=== PATIENT | male | born 1950 | race Caucasian/White ===

== ENCOUNTER 2024-05-29 00:58 | Day surgery (SDC) | payer MEDICARE, SELFPAY ==
[2024-05-17 14:10] VITALS: BMI 27.1
--- NOTE | 2024-05-17 14:27 | PC.NURSE ---
Addendum entered by Bev Bolton RN 05/18/24 11:22: Plavix and aspirin being held per Dr. Carrera, not Dr. Garcia. Original Note: Report to the Outpatient Waiting Room, entrance under the green pavilion located off [facility], at time _07:00am on date 05/29/24 . Planned Procedure Time: _09:00am .? Time changes happen often and if your time is changed the preop area will call you the afternoon before. - You and your visitor will be asked to self-screen and do not enter if you have any COVID symptoms. Please call surgeon if you need to reschedule. - A mask is optional within the hospital at this time. Patients may have clear liquids (water, carbonated beverages, clear teas, apple juice) until 3 hours prior to surgery with a maximum of 20 ounces. - No food from midnight until time of surgery and no smoking. This includes no chewing gum, candy or mints.( 0600am) Take only the following medications with a SIP of water on the morning of surgery: ___Metoprolol and Ranexa DO NOT STOP ANY OF YOUR OTHER PRESCRIPTION MEDICATIONS PRIOR TO SURGERY EXCEPT THE FOLLOWING Medications to discontinue per physician Holding the Plavix and Aspirin per Dr Rudd/ orders- pt to stop accordingly and check today Date to take last dose 1 week or prior per Dr Rudd and Dr Garcia orders Hold all MVI Please no make-up, nail english, hairspray, perfume, deodorant, or body powder the day of surgery.? No jewelry (including any body piercings) or valuables the day of surgery, leave them at home.? Please take a shower or bath the night before, or the morning of, surgery with an antibacterial soap.? Wear comfortable, loose fitting clothing.? - Jewelry must be removed prior to entering the operating room.? Rings and piercings that are not removed may be cut off. - The hospital will not accept responsibility for valuables.? - Please leave all valuables, including medications, at home the day of surgery. If you are going home after surgery, a licensed driver engineer must drive you home.? - NO public transportation without another adult if you receive anesthesia. - We recommend that an adult stay with you for 24 hours following discharge. - We also recommend that you do not drive, make important decision, drink alcoholic beverages, or take any drugs that were not prescribed by your health care provider for at least 24 hours after your discharge time. Follow any additional instructions given to you from your surgeon. Telephone instructions given to ___Patient and asked if any additional questions and then verbalized understanding. Patient advised to call surgeon office or pre surgery nurse liaison [phone] if any additional questions.
[2024-05-29 08:04] VITALS: BP 128/78; PULSE 59; RESP 20; TEMP 36.1; O2SAT 99
--- NOTE | 2024-05-29 08:39 | PM.IMHP ---
H&P: HPI History of Present Illness Date/Time: 05/29/24 08:39 Chief Complaint: elevated psa Narrative: 73 yr old male with elevated psa. Here for uronav us and prostate biopsy Review of Systems Review of Systems: All systems reviewed & are unremarkable except as noted in HPI and below PMFSH Family History Family History Father Hypertension Heart disease Mother Hypertension Social History Social History Smoking status: Never smoker Alcohol intake: current Drinks per week: 1 Substance use: never Substance use type: does not use Do You Feel Safe in your Home?: Yes Lack of Transportation: No Lack of Food: Never True Current Housing: I Have Housing Concerned About Future Housing: No Difficulty Paying Gas/Electric Bills: No Difficulty Paying for Meds: No Currently Unemployed: No Education: High School Diploma/GED Difficulty w/ Childcare or Family Care: No Living arrangements: with family Spiritual care concerns: No Meds Home Medications and Allergies Home Medications ?Medication ?Instructions ?Recorded ?Confirmed ?Type aspirin 81 mg tablet,delayed 81 mg PO DAILY 02/10/21 05/17/24 History release (Adult Low Dose Aspirin) clopidogrel 75 mg tablet 75 mg PO DAILY 02/10/21 05/17/24 History finasteride 5 mg tablet 5 mg PO DAILY 02/10/21 05/17/24 History pantoprazole 40 mg tablet,delayed 40 mg PO QAM 02/10/21 05/17/24 History release pravastatin 40 mg tablet 40 mg PO DAILY 02/10/21 05/17/24 History tamsulosin 0.4 mg capsule 0.4 mg PO BID 02/10/21 05/17/24 History baclofen 5 mg tablet 5 mg PO Q12H PRN cramps 07/28/23 05/17/24 History metoprolol succinate 50 mg 50 mg PO DAILY 07/28/23 05/17/24 History tablet,extended release 24 hr ranolazine 500 mg 500 mg PO BID 07/28/23 05/17/24 History granules,extended release in packet mecobalamin (vitamin B12) 500 mcg 500 mcg PO DAILY 05/17/24 05/17/24 History chewable tablet vitamin E 268 mg (400 unit) capsule 268 mg PO DAILY 05/17/24 05/17/24 History Allergies Allergy/AdvReac Type Severity Reaction Status Date / Time amoxicillin Allergy Severe Rash Verified 05/17/24 13:57 atorvastatin Allergy Intermediate Rash Verified 05/17/24 13:57 Exam Const: General: cooperative, comfortable and no acute distress Resp: Effort & Inspection: normal respiratory effort Cardio: Rate: regular rate Rhythm: regular rhythm Assessment and Plan Assessment and plan (1) Elevated PSA: Code(s): R97.20 - Elevated prostate specific antigen [PSA] Status: Acute Assessment and Plan: Proceed with uronav us and prostate biopsy
--- NOTE | 2024-05-29 08:42 | WPDHPUPDATE1 ---
History and Physical Update Update Date/Time: 05/29/24 08:42 History and Physical has been reviewed, including an updated exam of the patient. There are NO changes in the patient's condition. Risks, benefits, and alternatives have been discussed and questions answered. Patient agrees to proceed with procedure.
--- NOTE | 2024-05-29 08:59 | P.PNAN_ITS ---
Anes - Initial Pre Proc Eval Procedure: Operation Date: 05/29/24 10:00 Proposed Procedures p Transrectal Ultrasound Fusion Guided Prostate Biopsy - Feliz Carrera MD Date/Time: 05/29/24 08:59 Surgeon: Feliz Carrera MD Pre Op Diagnosis: elevated psa Patient Data Age: 73 Gender: M Height: 1.75 m Weight: 83.4 kg Allergies Allergy/AdvReac Type Severity Reaction Status Date / Time amoxicillin Allergy Severe Rash Verified 05/17/24 13:57 atorvastatin Allergy Intermediate Rash Verified 05/17/24 13:57 Home Medications ?Medication ?Instructions ?Recorded ?Confirmed ?Type aspirin 81 mg tablet,delayed 81 mg PO DAILY 02/10/21 05/17/24 History release (Adult Low Dose Aspirin) clopidogrel 75 mg tablet 75 mg PO DAILY 02/10/21 05/17/24 History finasteride 5 mg tablet 5 mg PO DAILY 02/10/21 05/17/24 History pantoprazole 40 mg tablet,delayed 40 mg PO QAM 02/10/21 05/17/24 History release pravastatin 40 mg tablet 40 mg PO DAILY 02/10/21 05/17/24 History tamsulosin 0.4 mg capsule 0.4 mg PO BID 02/10/21 05/17/24 History baclofen 5 mg tablet 5 mg PO Q12H PRN cramps 07/28/23 05/17/24 History metoprolol succinate 50 mg 50 mg PO DAILY 07/28/23 05/17/24 History tablet,extended release 24 hr ranolazine 500 mg 500 mg PO BID 07/28/23 05/17/24 History granules,extended release in packet mecobalamin (vitamin B12) 500 mcg 500 mcg PO DAILY 05/17/24 05/17/24 History chewable tablet vitamin E 268 mg (400 unit) capsule 268 mg PO DAILY 05/17/24 05/17/24 History Patient hx anesthesia problems: none Family hx anesthesia problems: none Results Review: All pre-operative results and documents have been reviewed as part of the pre- operative evaluation. [facility]LY [facility] Past Medical History Medical History (Updated 05/29/24 @ 09:00 by Hernan Bejarano MD) HTN (hypertension) Heart attack Coronary artery disease Surgical History Surgical History (Updated 05/29/24 @ 09:00 by Hernan Bejarano MD) History of coronary artery stent placement Hx of CABG Family History Family History Father Hypertension Heart disease Mother Hypertension Social History Social History Smoking status: Never smoker Alcohol intake: current Drinks per week: 1 Substance use: never Substance use type: does not use Do You Feel Safe in your Home?: Yes Lack of Transportation: No Lack of Food: Never True Current Housing: I Have Housing Concerned About Future Housing: No Difficulty Paying Gas/Electric Bills: No Difficulty Paying for Meds: No Currently Unemployed: No Education: High School Diploma/GED Difficulty w/ Childcare or Family Care: No Living arrangements: with family Spiritual care concerns: No Anes - Eval Final PreProcedure Day of Procedure 05/29/24 08:59 Patient weight: overweight Heart: regular rate and rhythm Lungs: clear to auscultation Airway: Mallampati scale class II Neurological: alert and oriented Last oral intake: >/= 8 hours ASA classification: III Emergent: no Anesthetic plan: proceed Anesthesia type and monitoring: general GIVS and standard monitoring Results Review: All pre-operative results and documents have been reviewed as part of the pre- operative evaluation. Informed Consent: The patient's anesthetic plan and its attendant risks and benefits were discussed with the patient/family/POA. Questions were solicited and answers provided to the satisfaction of the patient/family/POA.
[2024-05-29] MEDS: LACTATED RINGERS 1,000 ML 30 ML IV CONT (09:20)
[2024-05-29] MEDS: ceFAZolin 2 GM/D5W 50 ML 2 GM/50 ML BAG IVPB (09:56)
[2024-05-29 10:18] VITALS: BP 98/49; PULSE 55; RESP 16; O2SAT 100
--- NOTE | 2024-05-29 10:18 | W.PM.PROC2 ---
Procedure Note - Detailed Date of Procedure 05/29/24 Pre-op Diagnosis elevated psa Post-op Diagnosis Same Procedure Performed Uronav us and prostate biopsy Surgeon Feliz Carrera MD Anesthesia General Description of Procedure Patient was taken to the operative suite correctly identified. He was placed in decubitus position and anesthesia was given. Transrectal ultrasound probe was inserted. The MRI image was fused to the ultrasound machine. He had 2 regions of interest. Three cores were taken from each site. Twelve cores were then taken in standard fashion. Tolerated procedure well without any complications and was taken recovery stable condition. He is to call for path results 1 week. This completes dictation. Please send a copy of op note to my office Estimated Blood Loss 0 Drains No Packing No Pathology Yes Complications No immediate complications Condition Stable Disposition PACU
[2024-05-29 10:40] VITALS: BP 117/49; PULSE 54; RESP 18; O2SAT 97
[2024-05-29 10:50] VITALS: BP 110/50; PULSE 56; RESP 18
== END 2024-05-29 10:59 | disposition home or self-care (01) ==
PROVIDERS: PCP Student in an Organized Health Care Education/Training Program; Visit Provider Urology
PROC: (CPT 55700; principal; 2024-05-29 10:00)
DX: R97.20 Elevated prostate specific antigen [PSA] (principal); I10 Essential (primary) hypertension; I25.10 Atherosclerotic heart disease of native coronary artery without angina pectoris; I25.2 Old myocardial infarction; Z79.02 Long term (current) use of antithrombotics/antiplatelets; Z79.82 Long term (current) use of aspirin; Z98.890 Other specified postprocedural states; Z95.5 Presence of coronary angioplasty implant and graft; Z95.1 Presence of aortocoronary bypass graft; Z82.49 Family history of ischemic heart disease and other diseases of the circulatory system
CPT/HCPCS: 76872; 55700; G0416; J0690; J2003; J2704; J3010; J7120